=== PATIENT | male | born 1975 ===

== ENCOUNTER → 2016-12-02 | Outpatient (CLI) | payer BC ==
[2016-12-02 15:24] LABS: LYME DISEASE AB IGG NEG (NEG); LYME DISEASE AB IGM POS (NEG)
[2016-12-07 21:33] LABS: 18KDIGG BAND NONREACTIVE (NONREACTIVE); 23KDIGG BAND NONREACTIVE (NONREACTIVE); 23KDIGM BAND NONREACTIVE (NONREACTIVE); 28KDIGG BAND NONREACTIVE (NONREACTIVE); 30KDIGG BAND NONREACTIVE (NONREACTIVE); 39KDIGG BAND NONREACTIVE (NONREACTIVE); 39KDIGM BAND NONREACTIVE (NONREACTIVE); 41KDIGG BAND NONREACTIVE (NONREACTIVE); 41KDIGM BAND REACTIVE (NONREACTIVE); 45KDIGG BAND NONREACTIVE (NONREACTIVE); 58KDIGG BAND NONREACTIVE (NONREACTIVE); 66KDIGG BAND NONREACTIVE (NONREACTIVE); 93KDIGG BAND NONREACTIVE (NONREACTIVE)
--- NOTE | 2016-12-09 07:47 | CODING QUERY NO DIAGNOSIS ---
TREATMENT RENDERED WITHOUT A DIAGNOSIS To promote full compliance with coding requirements relating to patient care, physician participation is requested in all cases of homeland security program specialist uncertainty. Please assist us with providing a diagnosis/symptom for the test(s) below: CODE GIVEN [id number] IS AN EXTERNAL CAUSE CODE AND CAN ONLY BE USED AN ADDITIONAL DIAGNOSIS, IF KNOWN CAN YOU PLEASE DOCUMENT THE SITE OF THE TICK BITE BELOW, IF THE SITE IS UNKNOWN PLEASE SPECIFY THAT WELL DIAGNOSIS: Provider Signature: Date: Thank you Bianka Mascorro [facility] Information Management Once completed, please kindly fax back to [phone] For questions please call [phone]
== END | disposition home or self-care (01) ==
LOC: C.LABMFLN 07:08
PROVIDERS: ATTEND Family Medicine
DX: S30.861A Insect bite (nonvenomous) of abdominal wall, initial encounter (principal); W57.XXXA Bitten or stung by nonvenomous insect and other nonvenomous arthropods, initial encounter

== ENCOUNTER → 2018-03-20 | Outpatient (CLI) | payer OTHER ==
[2018-03-20 18:33] LABS: ALBUMIN 4.1 gm/dl (3.4-5.0); TOTAL PROTEIN 7.3 gm/dl (6.4-8.2)
== END | disposition home or self-care (01) ==
LOC: C.LABMFLN 17:03
PROVIDERS: ATTEND Family Medicine
DX: R10.11 Right upper quadrant pain (principal)

== ENCOUNTER → 2018-03-22 | Outpatient (CLI) | payer OTHER ==
--- NOTE | 2018-03-22 07:49 | DIAGNOSTIC IMAGING REPORT ---
ABDOMEN LIMITED (US) HISTORY: 43 years-old Male RUQ ABDOMINAL PAIN acute right upper quadrant abdominal pain COMPARISON: None available TECHNIQUE: Multiple real-time sonographic images of the abdominal right upper quadrant were obtained assessing grayscale appearance and color flow FINDINGS: Imaged pancreas is unremarkable. Liver is within normal limits without focal mass or intrahepatic biliary ductal dilation identified. Common bile duct is normal, 5 mm. Gallbladder is within normal limits without shadowing cholelithiasis, wall thickening or pericholecystic fluid. Imaged right kidney is unremarkable without hydronephrosis. IMPRESSION: Unremarkable right upper quadrant ultrasound. The above report was generated using voice recognition software. It may contain grammatical, syntax or spelling errors. Electronically signed by: Tae Hodgson M.D. 03/22/2018 7:48 AM Dictated Date/Time: 03/22/2018 7:46 AM
== END | disposition home or self-care (01) ==
LOC: C.ULTR 07:19
PROVIDERS: ATTEND Family Medicine
DX: R10.11 Right upper quadrant pain (principal)